=== PATIENT | female | born 1980 | race Caucasian/White ===

== ENCOUNTER 2019-03-28 11:54 | Emergency (ER) | payer OTHER, MEDICAID ==
[~2019-03-28] VITALS: Ht 165.1 cm; Wt 81.8 kg
[~2019-03-28 11:54] MED LIST: CETI10CA PO; RANI-467 PO
[2019-03-28] MEDS ORDERED: MORPHINE SULFATE 4 MG/ML, 1ML ONE (12:24)
[2019-03-28] MEDS ORDERED: ONDANSETRON 2MG/ML, 2ML ONE (12:24)
[2019-03-28] MEDS ORDERED: FAMOTIDINE 20 MG/2 ML ONE (12:24)
[2019-03-28] MEDS ORDERED: FAMOTIDINE 20 MG/2 ML IVPush ONE (12:30)
[2019-03-28] MEDS ORDERED: SODIUM CHLORIDE FLUSH 10ML SYR IVF ONE (12:30)
[2019-03-28] MEDS ORDERED: ONDANSETRON 2MG/ML, 2ML IVPush ONE (12:30)
[2019-03-28] MEDS ORDERED: MORPHINE SULFATE 4 MG/ML, 1ML IVPush PRN (12:30)
[2019-03-28] MEDS ORDERED: SODIUM CHLORIDE 0.9% 1,000ML IVBOLUS ONE (12:30)
[2019-03-28 12:42] LABS: ALANINE AMINOTRANSFERASE 30 U/L (12-78); ALBUMIN 3.8 g/dL (3.4-5.0); ANION GAP 10 mmol/L (5-15); CALCIUM 8.2 mg/dL (8.5-10.1); CHLORIDE 107 mmol/L (98-107); CREATININE 0.74 mg/dL (0.55-1.02)
[2019-03-28 12:43] LABS: BASOPHILS # (AUTO) 0.04 x10^3/uL (0-0.1); BASOPHILS % (AUTO) 1 % (0-1); EOSINOPHILS # (AUTO) 0.13 x10^3/uL (0-0.4); EOSINOPHILS % (AUTO) 2 % (1-7); LYMPHOCYTES # (AUTO) 1.87 x10^3/uL (1-3.4); LYMPHOCYTES % (AUTO) 28 % (22-44); MD NO; MEAN CORPUSCULAR HEMOGLOBIN 31.2 pg (27.0-34.8); MEAN CORPUSCULAR HGB CONC 33.1 g/dL (32.4-35.8); MEAN PLATELET VOLUME 7.6 fL (7.4-10.4); MONOCYTES # (AUTO) 0.37 x10^3/uL (0.2-0.8); MONOCYTES % (AUTO) 6 % (2-9); NEUTROPHILS # (AUTO) 4.28 x10^3/uL (1.8-6.8); NEUTROPHILS % (AUTO) 64 % (42-75); PLATELET COUNT 313 x10^3/uL (130-400); RED BLOOD COUNT 4.95 x10^6/uL (3.82-5.3); RED CELL DISTRIBUTION WIDTH 13.8 % (9.6-15.2)
[2019-03-28 12:45] LABS: ALKALINE PHOSPHATASE 53 U/L (45-117); BILIRUBIN,TOTAL 0.4 mg/dL (0.2-1.0); TOTAL PROTEIN 7.2 g/dL (6.4-8.2)
[2019-03-28 13:18] LABS: CULTURE INDICATED? YES; MICROSCOPIC AUTO
[2019-03-28] MEDS ORDERED: MAALOX/HYOSCYAMINE/LIDOCAINE 45 ML BTL ONE (13:42)
[2019-03-28] MEDS ORDERED: MECLIZINE CHEWABLE 25 MG TAB ONE (13:42)
--- NOTE | 2019-03-28 13:48 | NUR ---
BREAK RN: PATIENT MEDICATED PER EMAR. VS UPDATED. PATIENT RESTING ON THE GURNEY WATCHING TV WITH FAMILY AT BEDSIDE. SIDE RAILS UP X2, CALL LIGHT IN REACH. DENIES FURTHER NEEDS AT THIS TIME.
[2019-03-28] MEDS ORDERED: MECLIZINE CHEWABLE 25 MG TAB PO ONE (14:00)
[2019-03-28] MEDS ORDERED: MAALOX/HYOSCYAMINE/LIDOCAINE 45 ML BTL PO ONE (14:00)
--- NOTE | 2019-03-28 14:39 | NUR ---
DISCHARGE INSTRUCTIONS REVIEWED
[2019-03-28 14:40] VITALS: BP 119/73
--- NOTE | 2019-03-28 14:41 | NUR ---
Patient given discharge instructions and they have confirmed that they understand the instructions. Patient ambulatory with steady gait.
== END 2019-03-28 14:49 | disposition home or self-care (01) ==
LOC: ED 13:11
DX: K29.20 Alcoholic gastritis without bleeding (principal); F10.221 Alcohol dependence with intoxication delirium; R42 Dizziness and giddiness; R51 Headache; Y90.0 Blood alcohol level of less than 20 mg/100 ml
CPT/HCPCS: 36415; 76700; 80053; 80307; 81001; 83690; 85025; 87077; 87086; 93005; 96361; 96374; 96375; 99284; J2270; J2405; J3490; J7030; 87186

== ENCOUNTER 2019-04-01 20:42 | Emergency (ER) | payer MEDICAID ==
[~2019-04-01] VITALS: Ht 167.6 cm; Wt 82.5 kg
--- NOTE | 2019-04-01 21:23 | NUR ---
1ST CONTACT C PT. RESTING ON CART TALKING C GRANDMOTHER WHOM SHE CALLED THIS EVENING AND STATED "I NEED HELP" PT STATES SHE IS NO LONGER ABLE TO CONTROL HER DRINKING. STATES SHE WENT TO [facility] IN OCTOBER & DID VERY WELL FOR COUPLE MONTHS AFTERWARDS, THEN STARTED DRINKING "WELL OVER A 1/5 OF VODKA A DAY.. THATS JUST A SNACK" PT AMBULATORY C MILDLY UNSTEADY GAIT TO RESTROOM, URINE COLLECED & SENT. PHELB AT BS. PT STATES SHE LOST HER JOB THIS WEEK & LAST YEAR HER WALKED OUT ON HER "BHARGAVI HE WANTED TO TRY SOMETHING DIFFERENT... AND NOW HES A TRANNY" PT HAS SUPERFICIAL SMALL TO B/L INNER F/A. STATES LAST WEEK SHE WAS FEELING S/I, BUT NOT CURRENLY HAVING ANY THOUGHTS OF HURTING HER SELF, STATES SHE JUST WANTS TO DETOX.
[2019-04-01] MEDS ORDERED: LORazepam 1MG TABLET PO ONE (21:30)
[2019-04-01 21:33] LABS: BASOPHILS # (AUTO) 0.06 x10^3/uL (0-0.1); BASOPHILS % (AUTO) 1 % (0-1); EOSINOPHILS # (AUTO) 0.22 x10^3/uL (0-0.4); EOSINOPHILS % (AUTO) 3 % (1-7); LYMPHOCYTES # (AUTO) 2.45 x10^3/uL (1-3.4); LYMPHOCYTES % (AUTO) 27 % (22-44); MD NO; MEAN CORPUSCULAR HEMOGLOBIN 31.3 pg (27.0-34.8); MEAN CORPUSCULAR HGB CONC 33.4 g/dL (32.4-35.8); MEAN CORPUSCULAR VOLUME 93.7 fL (80-100); MEAN PLATELET VOLUME 7.2 fL (7.4-10.4); MONOCYTES # (AUTO) 0.38 x10^3/uL (0.2-0.8); MONOCYTES % (AUTO) 4 % (2-9); NEUTROPHILS # (AUTO) 5.81 x10^3/uL (1.8-6.8); NEUTROPHILS % (AUTO) 65 % (42-75); PLATELET COUNT 275 x10^3/uL (130-400); RED BLOOD COUNT 4.84 x10^6/uL (3.82-5.3); RED CELL DISTRIBUTION WIDTH 13.8 % (9.6-15.2)
[2019-04-01 21:42] LABS: ALANINE AMINOTRANSFERASE 35 U/L (12-78); ANION GAP 10 mmol/L (5-15); CALCIUM 8.8 mg/dL (8.5-10.1); CHLORIDE 112 mmol/L (98-107); CREATININE 0.71 mg/dL (0.55-1.02)
[2019-04-01 21:45] LABS: AMPHETAMINE SCREEN, URINE Negative (Negative); BARBITURATE SCREEN, URINE Negative (Negative); BENZODIAZEPINE SCREEN, URINE Negative (Negative); CANNABINOID SCREEN, URINE Negative (Negative); COCAINE SCREEN, URINE Negative (Negative); METHADONE SCREEN, URINE Negative (Negative); OPIATE SCREEN, URINE Negative (Negative)
[2019-04-01 21:48] LABS: ALKALINE PHOSPHATASE 54 U/L (45-117); BILIRUBIN,TOTAL 0.3 mg/dL (0.2-1.0); TOTAL PROTEIN 7.4 g/dL (6.4-8.2)
[2019-04-01] MEDS ORDERED: DIAZEPAM 10 MG TABLET PO ONE (22:00)
[2019-04-01] MEDS ORDERED: SODIUM CHLORIDE FLUSH 10ML SYR IVF ONE (22:00)
[2019-04-01] MEDS ORDERED: MAGNESIUM SULFATE 1 GM, THIAMINE 100 MG, FOLIC ACID 1 MG, MVI ADULT 10 ML in SODIUM CHL... IV ONE (22:30)
--- NOTE | 2019-04-01 22:35 | NUR ---
SITTER AT BS C GRANDMOTHER. SLEEPING ON CART, RR EVEN NON LABORED. WILL CTM.
--- NOTE | 2019-04-01 23:57 | NUR ---
PT SLEEPING ON CART. RR EVEN NON LABORED. SITTER AT BS. WILL CTM. IV INFUSING WELL.
--- NOTE | 2019-04-02 01:50 | NUR ---
AMBUALTORY TO RESTROOM C STEADY GAIT C SITTER. GIVEN JUICE & CRACKERS. VSS. WILL CTM.
--- NOTE | 2019-04-02 03:35 | NUR ---
PT SLEEPING ON CART. RR EVEN NON LABORED. NAD. SITTER REMAINS IN ROOM. WILL CTM.
--- NOTE | 2019-04-02 03:53 | NUR ---
PT AMBULATORY TO RESTROOM & RM 38 C STEADY GAIT. 1 BAG OF BELONGINGS PLACED IN LOCKER. REPORT TO MERCEDES MOODY.
--- NOTE | 2019-04-02 03:55 | NUR ---
Received report from previous RN. RN x2 to bedside to inform patient of move. Patient agreeable, ambulated down to bathroom, then back into room. Patient provided crackers and juice. Intravenous fluids still running. Patient resting comfortably. Awaiting reassessment in AM.
--- NOTE | 2019-04-02 05:21 | NUR ---
Emergency department deburr technician to bedside to update patient's blood alcohol content with breathalyzer. Patient able to complete test after one attempt. Provider notified, no orders received.
--- NOTE | 2019-04-02 06:55 | NUR ---
REPORT RECIEVED FROM MERCEDES MOODY. PATIENT SLEEPING IN BED, SAFETY PRECAUTIONS IN PLACE.
[2019-04-02 07:30] VITALS: BP 110/60
[2019-04-02] MEDS ORDERED: LORazepam 1MG TABLET ONE (07:41)
--- NOTE | 2019-04-02 08:29 | NUR ---
MEAL PROVIDED, SAFETY PRECAUTIONS IN PLACE
--- NOTE | 2019-04-02 09:00 | NUR ---
REPORT FROM ADEN
--- NOTE | 2019-04-02 10:00 | NUR ---
PT RESTING. CALLI MADRIGALN AT BEDSIDE.
--- NOTE | 2019-04-02 11:23 | NUR ---
Patient/Caregiver given discharge instructions and they have confirmed that they understand the instructions. Patient ambulatory with steady gait.
[2019-04-02] MEDS ORDERED: LAMOTRIGINE 100 MG TABLET PO ONE (11:30)
--- NOTE | 2019-04-02 12:01 | NUR ---
Patient/Caregiver given discharge instructions and they have confirmed that they understand the instructions. Patient ambulatory with steady gait.
--- NOTE | 2019-04-02 12:12 | NUR ---
MEDICATED PRIOR DC
== END 2019-04-02 12:13 | disposition home or self-care (01) ==
LOC: ED 21:35
DX: F10.220 Alcohol dependence with intoxication, uncomplicated (principal); Y90.0 Blood alcohol level of less than 20 mg/100 ml; J45.909 Unspecified asthma, uncomplicated
CPT/HCPCS: 36415; 80053; 80307; 84703; 85025; 96365; 99284; J3411; J3475; J7030

== ENCOUNTER 2019-04-27 23:32 | Emergency (ER) | payer SELFPAY ==
[~2019-04-27] VITALS: Ht 165.1 cm; Wt 92.0 kg
[2019-04-28] MEDS ORDERED: ONDANSETRON 2MG/ML, 2ML ONE ×2 (00:04→02:20)
[2019-04-28] MEDS ORDERED: MORPHINE SULFATE 4 MG/ML, 1ML ONE ×3 (00:04→02:21)
--- NOTE | 2019-04-28 00:10 | NUR ---
Pt c/o low abd pain with abd spasms starting 1 hour ago. Pt appears very uncomfortable, restless in bed but cooperative with staff. Pt medicated per MAR, positioned for comfort in bed. Continuous oxygen and BP monitors applied, all safety measures observed. Pt encouraged to provide urine sample as soon as she is able. Pt denies other needs.
[2019-04-28] MEDS: MORPHINE SULFATE 4 MG/ML, 1ML IVPush PRN ×2 (00:12→00:32)
[2019-04-28 00:16] LABS: BASOPHILS # (AUTO) 0.08 x10^3/uL (0-0.1); BASOPHILS % (AUTO) 1 % (0-1); EOSINOPHILS # (AUTO) 0.29 x10^3/uL (0-0.4); EOSINOPHILS % (AUTO) 2 % (1-7); LYMPHOCYTES # (AUTO) 3.23 x10^3/uL (1-3.4); LYMPHOCYTES % (AUTO) 26 % (22-44); MD NO; MEAN CORPUSCULAR HEMOGLOBIN 30.9 pg (27.0-34.8); MEAN CORPUSCULAR HGB CONC 33.8 g/dL (32.4-35.8); MEAN CORPUSCULAR VOLUME 91.6 fL (80-100); MEAN PLATELET VOLUME 7.6 fL (7.4-10.4); MONOCYTES # (AUTO) 0.47 x10^3/uL (0.2-0.8); MONOCYTES % (AUTO) 4 % (2-9); NEUTROPHILS # (AUTO) 8.45 x10^3/uL (1.8-6.8); NEUTROPHILS % (AUTO) 68 % (42-75); PLATELET COUNT 283 x10^3/uL (130-400); RED CELL DISTRIBUTION WIDTH 13.4 % (9.6-15.2)
--- NOTE | 2019-04-28 00:25 | NUR ---
Pt ambulatory to bathroom and back to bed without difficulty. Pt states pain still 7/10 after medications. Pt requesting additional pain medication.
[2019-04-28 00:26] LABS: ALBUMIN 3.6 g/dL (3.4-5.0); ANION GAP 7 mmol/L (5-15); CALCIUM 8.2 mg/dL (8.5-10.1); CHLORIDE 111 mmol/L (98-107); CREATININE 0.73 mg/dL (0.55-1.02)
--- NOTE | 2019-04-28 00:32 | NUR ---
Pt medicated for continued pain per MAR, denies other needs.
[2019-04-28 00:35] LABS: MICROSCOPIC AUTO
[2019-04-28 00:39] LABS: CULTURE INDICATED? YES
--- NOTE | 2019-04-28 01:09 | NUR ---
BREAK RN: PT. TO CT VIA [place] AT THIS TIME. NO DISTRESS NOTED.
[2019-04-28] MEDS ORDERED: OMNIPAQUE 350 MG/ML, 100ML BOTTLE ONE (01:17)
--- NOTE | 2019-04-28 01:17 | NUR ---
Pt back from CT, resting in bed, MOHAMUDN.
[2019-04-28 01:33] VITALS: BP 107/68
--- NOTE | 2019-04-28 01:34 | NUR ---
Pt resting in bed with eyes closed, resp even and unlabored, NADN.
[2019-04-28] MEDS ORDERED: SULFAMETH./TRIMETHOPRIM DS 800MG/160MG TABLET ONE (02:20)
[2019-04-28] MEDS ORDERED: SULFAMETH./TRIMETHOPRIM DS 800MG/160MG TABLET PO ONE (02:30)
[2019-04-28] MEDS ORDERED: ONDANSETRON 2MG/ML, 2ML IVPush ONE ×2 (02:30)
[2019-04-28] MEDS ORDERED: MORPHINE SULFATE 4 MG/ML, 1ML IVPush PRN (02:30)
== END 2019-04-28 02:46 | disposition home or self-care (01) ==
LOC: ED 23:52
DX: N30.00 Acute cystitis without hematuria (principal); J45.909 Unspecified asthma, uncomplicated; G40.909 Epilepsy, unspecified, not intractable, without status epilepticus; R10.31 Right lower quadrant pain; F17.200 Nicotine dependence, unspecified, uncomplicated; Z90.49 Acquired absence of other specified parts of digestive tract
CPT/HCPCS: 36415; 74177; 80048; 81001; 82040; 85025; 87086; 96374; 96375; 96376; 99284; J2270; J2405; Q9967

== ENCOUNTER 2019-05-05 06:04 | Emergency (ER) | payer MEDICAID, OTHER ==
[~2019-05-05] VITALS: Ht 165.1 cm; Wt 89.9 kg
--- NOTE | 2019-05-05 06:23 | NUR ---
PT REPORTS RLQ PAIN, WITH NAUSEA AND VOMITING STARTING LAST NIGHT. DENIES RADIATIN OF PAIN, REPORTS SHE DOES HAVE HER APPENDIX STILL. REPORTS SHE HAS CURRENT UTI AND IS TAKING BACTRIM. PT DENIES ANY OTHER C/O AT THIS TIME. PT CONNECTED TO MONITORING, CALL LIGHT WITHIN REACH, ALL SAFETY MEASURES IN PLACE.
[2019-05-05] MEDS ORDERED: ONDANSETRON 2MG/ML, 2ML ONE ×2 (06:27→08:06)
[2019-05-05] MEDS ORDERED: MORPHINE SULFATE 4 MG/ML, 1ML ONE ×2 (06:28→08:02)
[2019-05-05] MEDS ORDERED: FAMOTIDINE 20 MG/2 ML ONE (06:29)
[2019-05-05] MEDS ORDERED: SODIUM CHLORIDE 0.9% 1,000ML IVBOLUS ONE (06:30)
[2019-05-05] MEDS ORDERED: ONDANSETRON 2MG/ML, 2ML IVPush ONE ×2 (06:30→08:30)
[2019-05-05] MEDS ORDERED: FAMOTIDINE 20 MG/2 ML IV ONE (06:30)
[2019-05-05] MEDS: MORPHINE SULFATE 4 MG/ML, 1ML IVPush PRN ×2 (06:38→08:12)
[2019-05-05 06:40] LABS: BASOPHILS # (AUTO) 0.05 x10^3/uL (0-0.1); BASOPHILS % (AUTO) 1 % (0-1); EOSINOPHILS # (AUTO) 0.28 x10^3/uL (0-0.4); EOSINOPHILS % (AUTO) 3 % (1-7); LYMPHOCYTES # (AUTO) 2.33 x10^3/uL (1-3.4); LYMPHOCYTES % (AUTO) 23 % (22-44); MD NO; MEAN CORPUSCULAR HEMOGLOBIN 31.1 pg (27.0-34.8); MEAN CORPUSCULAR VOLUME 91.4 fL (80-100); MEAN PLATELET VOLUME 7.1 fL (7.4-10.4); MONOCYTES # (AUTO) 0.42 x10^3/uL (0.2-0.8); MONOCYTES % (AUTO) 4 % (2-9); NEUTROPHILS # (AUTO) 6.99 x10^3/uL (1.8-6.8); NEUTROPHILS % (AUTO) 69 % (42-75); PLATELET COUNT 283 x10^3/uL (130-400); RED BLOOD COUNT 4.63 x10^6/uL (3.82-5.3); RED CELL DISTRIBUTION WIDTH 13.3 % (9.6-15.2)
--- NOTE | 2019-05-05 06:43 | NUR ---
LABS DRAWN, UA SENT, PT MEDICATED PER MAR WITH IVF RUNNING AT THIS TIME. PT DENIES FURTHER NEEDS AT THIS TIME. MONITORING IN PLACE, CALL LIGHT WITHIN REACH, ALL SAFETY MEASURES IN PLACE.
[2019-05-05 06:50] LABS: MICROSCOPIC AUTO
[2019-05-05 06:51] LABS: CULTURE INDICATED? YES
[2019-05-05 06:53] LABS: ALANINE AMINOTRANSFERASE 26 U/L (12-78); ALBUMIN 3.5 g/dL (3.4-5.0); ANION GAP 7 mmol/L (5-15); CHLORIDE 108 mmol/L (98-107); CREATININE 0.75 mg/dL (0.55-1.02)
--- NOTE | 2019-05-05 06:53 | NUR ---
REPORT GIVEN TO FRANSISCO GAMA
[2019-05-05 06:55] LABS: ALKALINE PHOSPHATASE 63 U/L (45-117); BILIRUBIN,TOTAL 0.3 mg/dL (0.2-1.0); TOTAL PROTEIN 7.1 g/dL (6.4-8.2)
--- NOTE | 2019-05-05 07:17 | NUR ---
LATE NOTE ENTRY DUE TO PT CARE. Received bedside report from FRANSISCO Slater. All questions answered. Pt transported on gurney to US. NADN. No needs expressed at this time. Assuming care of pt at this time.
[2019-05-05] MEDS ORDERED: CEFTRIAXONE PMX 1GM/50ML 50 ML ONE (08:01)
[2019-05-05] MEDS: CEFTRIAXONE PMX 1GM/50ML 50 ML IV ONE ×2 (08:12→08:32)
--- NOTE | 2019-05-05 08:14 | NUR ---
Provided medication for nausea and pain. CT at bedside. Pt transfered on gurney from ED to CT. Will hang antibiotics per EMAR when pt returns from CT.
[2019-05-05 08:15] VITALS: BP 133/86
[2019-05-05] MEDS ORDERED: MORPHINE SULFATE 4 MG/ML, 1ML IVPush PRN (08:30)
[2019-05-05] MEDS ORDERED: PROMETHAZINE 25 MG/ML, 1ML ONE (09:19)
[2019-05-05] MEDS ORDERED: OMNIPAQUE 350 MG/ML, 100ML BOTTLE ONE (09:24)
--- NOTE | 2019-05-05 09:27 | NUR ---
Medication provided per EDMD verbal order. Provided sprite and crackers per pt request, EDPA aware and stated, "ya go ahead and feed her a little".
[2019-05-05] MEDS ORDERED: PROMETHAZINE 25 MG/ML, 1ML IM ONE (09:30)
--- NOTE | 2019-05-05 10:07 | NUR ---
Patient given discharge instructions and they have confirmed that they understand the instructions. Patient ambulatory with steady gait. Pt has family to come pick her up and taker her home. Pt left with d/c paperwork, Rx, and all personal belongings.
== END 2019-05-05 10:08 | disposition home or self-care (01) ==
LOC: ED 08:53
DX: N30.00 Acute cystitis without hematuria (principal); R63.0 Anorexia; R11.2 Nausea with vomiting, unspecified; R19.7 Diarrhea, unspecified; G40.909 Epilepsy, unspecified, not intractable, without status epilepticus; J45.909 Unspecified asthma, uncomplicated; Z90.710 Acquired absence of both cervix and uterus; Z87.19 Personal history of other diseases of the digestive system; Z90.49 Acquired absence of other specified parts of digestive tract
CPT/HCPCS: 36415; 74177; 76830; 80053; 81001; 83690; 85025; 87086; 96361; 96365; 96372; 96375; 96376; 99284; J0696; J2270; J2405; J2550; J3490; J7030; Q9967

== ENCOUNTER 2019-09-15 10:59 | Emergency (ER) | payer MEDICAID ==
[~2019-09-15] VITALS: Ht 167.6 cm; Wt 98.2 kg
[2019-09-15 11:37] LABS: BASOPHILS # (AUTO) 0.04 x10^3/uL (0-0.1); BASOPHILS % (AUTO) 1 % (0-1); EOSINOPHILS # (AUTO) 0.25 x10^3/uL (0-0.4); EOSINOPHILS % (AUTO) 3 % (1-7); LYMPHOCYTES # (AUTO) 1.85 x10^3/uL (1-3.4); LYMPHOCYTES % (AUTO) 24 % (22-44); MD NO; MEAN CORPUSCULAR HEMOGLOBIN 30.4 pg (27.0-34.8); MEAN CORPUSCULAR HGB CONC 34.1 g/dL (32.4-35.8); MEAN CORPUSCULAR VOLUME 89.1 fL (80-100); MEAN PLATELET VOLUME 7.2 fL (7.4-10.4); MONOCYTES # (AUTO) 0.28 x10^3/uL (0.2-0.8); MONOCYTES % (AUTO) 4 % (2-9); NEUTROPHILS # (AUTO) 5.39 x10^3/uL (1.8-6.8); NEUTROPHILS % (AUTO) 69 % (42-75); PLATELET COUNT 248 x10^3/uL (130-400); RED BLOOD COUNT 4.48 x10^6/uL (3.82-5.3); RED CELL DISTRIBUTION WIDTH 12.5 % (9.6-15.2)
[2019-09-15 11:50] LABS: CHLORIDE 105 mmol/L (98-107)
--- NOTE | 2019-09-15 11:52 | NUR ---
Pt arrives to ed with right abd side pain. Pt reports that she has been uncomfortable for about 3 days. Pt reports that she also has increased frequent uti and bladder infections. Pt denies any trauma. Pt is a/ox4 and no resp symptoms. Pt providing UA at this time.
[2019-09-15 12:01] LABS: ALANINE AMINOTRANSFERASE 18 U/L (12-78); ALBUMIN 3.5 g/dL (3.4-5.0); ALKALINE PHOSPHATASE 49 U/L (45-117); ANION GAP 6 mmol/L (5-15); BILIRUBIN,TOTAL 0.3 mg/dL (0.2-1.0); CALCIUM 8.4 mg/dL (8.5-10.1); CREATININE 0.89 mg/dL (0.55-1.02)
[2019-09-15] MEDS ORDERED: LAMO25TA52 PO (12:09)
[2019-09-15] MEDS ORDERED: PROMETHAZINE 25 MG/ML, 1ML IM ONE (12:30)
[2019-09-15] MEDS ORDERED: HYDROmorphone 2 MG/ML, 1ML IM PRN (12:30)
[2019-09-15 12:33] LABS: MICROSCOPIC INDICATED
[2019-09-15] MEDS ORDERED: HYDROmorphone 1 MG/ML, 1ML INJ ONE (12:37)
[2019-09-15] MEDS ORDERED: PROMETHAZINE 25 MG/ML, 1ML ONE (12:37)
[2019-09-15 12:42] LABS: TOTAL PROTEIN 6.5 g/dL (6.4-8.2)
--- NOTE | 2019-09-15 12:44 | NUR ---
PT MEDICATED PER EMAR. PT TOLERATED WELL. PT'S AOX4. RESPS EVEN AND UNALBORED.
--- NOTE | 2019-09-15 13:10 | NUR ---
PT TO CT AT THIS TIME.
[2019-09-15 13:46] VITALS: BP 125/80
--- NOTE | 2019-09-15 13:46 | NUR ---
pt resting in [facility]. pt's aox4. pt states"i feel much better. pain level is 2/10" resps even and unlabored.
--- NOTE | 2019-09-15 14:35 | NUR ---
Patient given discharge instructions and they have confirmed that they understand the instructions. Patient ambulatory with steady gait.
== END 2019-09-15 14:36 | disposition home or self-care (01) ==
LOC: ED 12:24
DX: R10.31 Right lower quadrant pain (principal); R10.11 Right upper quadrant pain; R11.2 Nausea with vomiting, unspecified; Z90.49 Acquired absence of other specified parts of digestive tract; Z90.710 Acquired absence of both cervix and uterus
CPT/HCPCS: 36415; 74176; 80053; 81001; 83690; 85025; 87077; 87086; 96372; 99284; J1170; J2550; 87186

== ENCOUNTER 2019-12-07 11:27 | Emergency (ER) | payer MEDICAID, OTHER ==
[~2019-12-07] VITALS: Ht 167.6 cm; Wt 93.8 kg
[~2019-12-07 11:27] MED LIST changes: +LAMO25TA52 PO
--- NOTE | 2019-12-07 11:30 | NUR ---
PT AMBULATORY TO ED ROOM 29 W/ STEADY GAIT.
--- NOTE | 2019-12-07 11:37 | NUR ---
C/O WORST VENTURA SHE'S EVER HAD. STATES "I GOT A CONCUSSION AT WORK 2 DAYS AGO"; DX'D AT [facility] . STATES SHE DROPPED A PIECE OF MATERIAL AND HIT TOP PART OF HER HEAD ON AN OVERHANG WHILE RETURNING TO STANDING POSITION. DENIES LOC, VOMITING. + NAUSEA, HX OF MIGRAINE, INTERMITTENT BLURRED VISION. IBUPROFEN & TYLENOL AT 0500 TODAY.
[2019-12-07] MEDS ORDERED: ARIP10TA33 PO (11:51)
[2019-12-07] MEDS ORDERED: ONDA4TAB13 PO (11:51)
[2019-12-07] MEDS ORDERED: TRAZ-96 PO (11:51)
[2019-12-07] MEDS ORDERED: LAMO200T6 PO (11:51)
[2019-12-07] MEDS ORDERED: NALT50TA PO (11:51)
[2019-12-07] MEDS ORDERED: CYCL-259 PO (11:51)
[2019-12-07] MEDS ORDERED: HYDR50CA PO (11:51)
[2019-12-07] MEDS ORDERED: SODIUM CHLORIDE 0.9% 1,000ML IVBOLUS ONE (12:00)
[2019-12-07] MEDS ORDERED: SODIUM CHLORIDE FLUSH 10ML SYR IVF ONE (12:00)
[2019-12-07] MEDS ORDERED: DIPHENHYDRAMINE 50 MG/ML, 1ML IVPush ONE (12:00)
[2019-12-07] MEDS ORDERED: KETOROLAC 30 MG/1 ML IV ONE (12:00)
[2019-12-07] MEDS ORDERED: PROCHLORPERAZINE 5 MG/ML, 2ML IVPush ONE (12:00)
--- NOTE | 2019-12-07 12:03 | NUR ---
TO CT PER BETINA
[2019-12-07] MEDS ORDERED: PROCHLORPERAZINE 5 MG/ML, 2ML ONE (12:13)
[2019-12-07] MEDS ORDERED: KETOROLAC 30 MG/1 ML ONE (12:14)
[2019-12-07] MEDS ORDERED: DIPHENHYDRAMINE 50 MG/ML, 1ML ONE (12:16)
[2019-12-07 13:07] VITALS: BP 113/81
--- NOTE | 2019-12-07 13:25 | NUR ---
PT REPORTS IMPROVEMENT IN PAIN.
== END 2019-12-07 13:39 | disposition home or self-care (01) ==
LOC: ED 12:00
DX: S16.1XXA Strain of muscle, fascia and tendon at neck level, initial encounter (principal); S09.90XA Unspecified injury of head, initial encounter; Z90.710 Acquired absence of both cervix and uterus; Z90.89 Acquired absence of other organs; Z88.0 Allergy status to penicillin; Z88.1 Allergy status to other antibiotic agents; X58.XXXA Exposure to other specified factors, initial encounter; Y93.89 Activity, other specified; Y92.89 Other specified places as the place of occurrence of the external cause; Y99.0 Civilian activity done for income or pay
CPT/HCPCS: 70450; 72125; 96361; 96374; 96375; 99285; J0780; J1200; J1885; J7030

== ENCOUNTER 2020-03-12 13:03 | Emergency (ER) | payer MEDICAID, OTHER ==
[~2020-03-12] VITALS: Ht 167.6 cm; Wt 92.8 kg
[~2020-03-12 13:03] MED LIST changes: +ARIP10TA33 PO; +CYCL-259 PO; +HYDR50CA PO; +LAMO200T6 PO; +NALT50TA PO; +ONDA4TAB13 PO; +TRAZ-96 PO
[2020-03-12 13:06] VITALS: BP 122/76
--- NOTE | 2020-03-12 13:34 | NUR ---
pt to room from lobby
--- NOTE | 2020-03-12 14:02 | NUR ---
ALL RESULTS ARE BACK AT THIS TIME. CHART UP FOR RECHECK.
== END 2020-03-12 15:21 | disposition home or self-care (01) ==
LOC: ED 14:16
DX: M72.2 Plantar fascial fibromatosis (principal); J45.909 Unspecified asthma, uncomplicated; Z90.49 Acquired absence of other specified parts of digestive tract; Z90.710 Acquired absence of both cervix and uterus; Z90.89 Acquired absence of other organs
CPT/HCPCS: 99283

== ENCOUNTER 2020-07-07 10:52 | Emergency (ER) | payer BC, MEDICAID ==
[~2020-07-07] VITALS: Ht 167.6 cm; Wt 85.5 kg
[~2020-07-07 10:52] MED LIST changes: -CYCL-259 PO; +CYCL10TA2 PO
--- NOTE | 2020-07-07 11:11 | NUR ---
PT C/O ABD PAIN THAT STARTED THIS AM AT 0400. PT HAS N/V, CHILLS, AND DIARRHEA WITH BLOOD. PAIN 11/29. PT DENIES SOB, CP, OR VENTURA.
[2020-07-07] MEDS ORDERED: MORPHINE SULFATE 4 MG/ML, 1ML ONE (11:24)
[2020-07-07] MEDS ORDERED: ONDANSETRON 2MG/ML, 2ML ONE (11:24)
[2020-07-07] MEDS ORDERED: MORPHINE SULFATE 4 MG/ML, 1ML IVPush PRN (11:30)
[2020-07-07] MEDS ORDERED: SODIUM CHLORIDE FLUSH 10ML SYR IVF ONE (11:30)
[2020-07-07] MEDS ORDERED: ONDANSETRON 2MG/ML, 2ML IVPush ONE (11:30)
[2020-07-07] MEDS ORDERED: SODIUM CHLORIDE 0.9% 1,000 ML IV ONE (11:30)
[2020-07-07] MEDS ORDERED: SODIUM CHLORIDE 0.9% 1,000ML IVBOLUS ONE (11:30)
[2020-07-07 11:32] LABS: MICROSCOPIC NOT IND
[2020-07-07 11:52] LABS: BASOPHILS % (AUTO) 1 % (0-1); EOSINOPHILS % (AUTO) 1 % (1-7); LYMPHOCYTES % (AUTO) 30 % (22-44); MEAN CORPUSCULAR HEMOGLOBIN 29.7 pg (27.0-34.8); MEAN CORPUSCULAR HGB CONC 33.6 g/dL (32.4-35.8); MEAN PLATELET VOLUME 7.6 fL (7.4-10.4); MONOCYTES % (AUTO) 4 % (2-9); NEUTROPHILS % (AUTO) 64 % (42-75); PLATELET COUNT 280 x10^3/uL (130-400); RED BLOOD COUNT 4.48 x10^6/uL (3.82-5.3); RED CELL DISTRIBUTION WIDTH 12.8 % (9.6-15.2)
[2020-07-07 11:53] LABS: MD NO
[2020-07-07 11:58] LABS: ALANINE AMINOTRANSFERASE 16 U/L (12-78); ALBUMIN 4.5 g/dL (3.4-5.0); ANION GAP 6 mmol/L (5-15); CALCIUM 9.1 mg/dL (8.5-10.1); CHLORIDE 108 mmol/L (98-107); CREATININE 0.84 mg/dL (0.55-1.02)
[2020-07-07 12:01] LABS: ALKALINE PHOSPHATASE 36 U/L (45-117); BILIRUBIN,TOTAL 0.3 mg/dL (0.2-1.0); TOTAL PROTEIN 7.2 g/dL (6.4-8.2)
[2020-07-07 12:51] VITALS: BP 94/58
--- NOTE | 2020-07-07 12:55 | NUR ---
PT REC'VD DISCHARGE INSTRUCTIONS AND EDUCATION. PT HAD NO QUESTIONS. PT AMBULATED TO DC AREA, STEADY GAIT.
== END 2020-07-07 12:57 | disposition home or self-care (01) ==
LOC: ED 11:21
DX: K52.9 Noninfective gastroenteritis and colitis, unspecified (principal); R11.10 Vomiting, unspecified; F17.200 Nicotine dependence, unspecified, uncomplicated; Z90.710 Acquired absence of both cervix and uterus
CPT/HCPCS: 36415; 80053; 81003; 83690; 85025; 96361; 96374; 96375; 99284; J2270; J2405; J7030

== ENCOUNTER 2020-07-26 18:00 | Emergency (ER) | payer MEDICAID ==
[~2020-07-26] VITALS: Ht 165.1 cm; Wt 89.0 kg
--- NOTE | 2020-07-26 18:31 | NUR ---
PT C/O RUQ PAIN THAT RADIATES TO FLANK AND BACK SINCE 1000 THIS MORNING. DESCRIBES PAIN CRAMPING AND ACHING. PT HAD GALLBLADDER TAKEN OUT 9 YEARS AGO. VOMITING THIS MORNING THAT WAS GREEN AND YELLOW. DENIES DIARRHEA. PAIN GETS WORSE WHEN BREATHING AND WALKING.
--- NOTE | 2020-07-26 18:44 | NUR ---
PT UP TO THE BATHROOM FOR UA.
[2020-07-26] MEDS ORDERED: MORPHINE SULFATE 4 MG/ML, 1ML ONE (18:57)
[2020-07-26] MEDS ORDERED: SODIUM CHLORIDE 0.9% 1,000 ML IV ONE (19:00)
[2020-07-26] MEDS ORDERED: ONDANSETRON 2MG/ML, 2ML IVPush ONE (19:00)
[2020-07-26] MEDS ORDERED: morphine SULFATE 10 MG/ML, 1ML IVPush ONE (19:00)
[2020-07-26] MEDS ORDERED: SODIUM CHLORIDE FLUSH 10ML SYR IVF ONE (19:00)
[2020-07-26 19:12] LABS: ALBUMIN 4.1 g/dL (3.4-5.0); ANION GAP 5 mmol/L (5-15); CALCIUM 8.3 mg/dL (8.5-10.1); CHLORIDE 107 mmol/L (98-107)
[2020-07-26 19:13] LABS: BASOPHILS % (AUTO) 1 % (0-1); EOSINOPHILS % (AUTO) 0 % (1-7); LYMPHOCYTES % (AUTO) 26 % (22-44); MEAN CORPUSCULAR HEMOGLOBIN 29.2 pg (27.0-34.8); MEAN PLATELET VOLUME 7.7 fL (7.4-10.4); MONOCYTES % (AUTO) 4 % (2-9); NEUTROPHILS % (AUTO) 69 % (42-75); PLATELET COUNT 276 x10^3/uL (130-400); RED CELL DISTRIBUTION WIDTH 12.7 % (9.6-15.2)
[2020-07-26 19:14] LABS: MD NO
[2020-07-26 19:15] LABS: ALANINE AMINOTRANSFERASE 20 U/L (12-78); ALKALINE PHOSPHATASE 35 U/L (45-117); BILIRUBIN,TOTAL 0.4 mg/dL (0.2-1.0); CREATININE 0.85 mg/dL (0.55-1.02); TOTAL PROTEIN 6.8 g/dL (6.4-8.2)
[2020-07-26] MEDS ORDERED: ONDANSETRON 2MG/ML, 2ML ONE (19:20)
[2020-07-26 20:00] LABS: MICROSCOPIC AUTO
[2020-07-26] MEDS ORDERED: HYDROmorphone 1 MG/ML, 1ML INJ IV ONE (20:00)
[2020-07-26] MEDS ORDERED: MORPHINE SULFATE 4 MG/ML, 1ML IVPush ONE (20:00)
[2020-07-26] MEDS ORDERED: HYDROmorphone 1 MG/ML, 1ML INJ ONE (20:12)
[2020-07-26] MEDS ORDERED: CEFTRIAXONE PMX 2GM/50ML 50 ML ONE (20:13)
--- NOTE | 2020-07-26 20:19 | NUR ---
SCANNER IS NOT WORKING IN PTS ROOM. HAVE USED 6 RIGHTS AND 3 CHECKS FOR ALL MEDICATIONS.
[2020-07-26] MEDS ORDERED: CEFTRIAXONE PMX 2GM/50ML 50 ML IVPB ONE (20:30)
--- NOTE | 2020-07-26 21:17 | NUR ---
PT OFF UNIT AT IMAGING.
[2020-07-26] MEDS ORDERED: OMNIPAQUE 350 MG/ML, 100ML BOTTLE ONE (21:22)
[2020-07-26 22:06] VITALS: BP 99/64
== END 2020-07-26 22:09 | disposition home or self-care (01) ==
LOC: ED 19:56
DX: N10 Acute pyelonephritis (principal); R10.11 Right upper quadrant pain; R11.2 Nausea with vomiting, unspecified; J45.909 Unspecified asthma, uncomplicated; G40.909 Epilepsy, unspecified, not intractable, without status epilepticus; Z88.8 Allergy status to other drugs, medicaments and biological substances; Z88.0 Allergy status to penicillin; Z90.89 Acquired absence of other organs; Z90.49 Acquired absence of other specified parts of digestive tract; Z90.710 Acquired absence of both cervix and uterus; Z79.899 Other long term (current) drug therapy
CPT/HCPCS: 36415; 74177; 76700; 80053; 81001; 83605; 83690; 85025; 87040; 87077; 87086; 87186; 96361; 96365; 96375; 99285; J0696; J1170; J2270; J2405; J7030; Q9967

== ENCOUNTER 2020-10-18 11:53 | Emergency (ER) | payer MEDICAID ==
[~2020-10-18] VITALS: Ht 167.6 cm; Wt 79.4 kg
--- NOTE | 2020-10-18 12:05 | NUR ---
BIB [facility] PT STATES AT 10AM STARTED LEFT FACIAL NUMBNESS WITH NO SPEECH PROBLEMS AND LEFT AND ARM TINGLINGING AND WEAKNESS, HISTORY TIA 3 YEARS AGO.
--- NOTE | 2020-10-18 12:05 | NUR ---
PT HOOKED UP TO HEART MONITOR O2 SAT AND BP, PT RESTING IN BED AFTER URINE COLLECTED BETINA RAILS UPX2 AND WILL CONTINUE TO MONITOR
--- NOTE | 2020-10-18 12:36 | NUR ---
provider at bedside to do evaluation.
[2020-10-18 12:58] LABS: BASOPHILS % (AUTO) 0 % (0-1); EOSINOPHILS % (AUTO) 1 % (1-7); LYMPHOCYTES % (AUTO) 25 % (22-44); MEAN CORPUSCULAR HEMOGLOBIN 29.1 pg (27.0-34.8); MEAN CORPUSCULAR HGB CONC 33.4 g/dL (32.4-35.8); MEAN PLATELET VOLUME 7.7 fL (7.4-10.4); MONOCYTES % (AUTO) 3 % (2-9); NEUTROPHILS % (AUTO) 71 % (42-75); PLATELET COUNT 264 x10^3/uL (130-400); RED BLOOD COUNT 4.66 x10^6/uL (3.82-5.3); RED CELL DISTRIBUTION WIDTH 13.7 % (9.6-15.2)
[2020-10-18] MEDS ORDERED: METOCLOPRAMIDE 5 MG/ML, 2ML ONE (12:59)
[2020-10-18] MEDS ORDERED: KETOROLAC 30 MG/1 ML ONE (12:59)
[2020-10-18] MEDS ORDERED: KETOROLAC 30 MG/1 ML IVPush ONE (13:00)
[2020-10-18] MEDS ORDERED: METOCLOPRAMIDE 5 MG/ML, 2ML IVPush ONE (13:00)
--- NOTE | 2020-10-18 13:08 | NUR ---
PT RESPONDING WELL TO MEDICATION HEART RATE INCREASED.
--- NOTE | 2020-10-18 13:09 | NUR ---
BREAK FRANSISCO VARELA GIVEN REPORT TO ASSUME CARE
[2020-10-18 13:10] LABS: CHLORIDE 107 mmol/L (98-107)
[2020-10-18 13:31] LABS: ANION GAP 6 mmol/L (5-15); CALCIUM 8.6 mg/dL (8.5-10.1)
--- NOTE | 2020-10-18 13:43 | NUR ---
PT TO RADIOLOGY FOR EXAM.
[2020-10-18 14:38] VITALS: BP 100/65
== END 2020-10-18 15:50 | disposition home or self-care (01) ==
LOC: ED 12:55
DX: R20.2 Paresthesia of skin (principal); G43.001 Migraine without aura, not intractable, with status migrainosus; J45.909 Unspecified asthma, uncomplicated; F17.200 Nicotine dependence, unspecified, uncomplicated; Z90.49 Acquired absence of other specified parts of digestive tract; Z90.89 Acquired absence of other organs; Z88.0 Allergy status to penicillin; Z88.8 Allergy status to other drugs, medicaments and biological substances; Z88.1 Allergy status to other antibiotic agents
CPT/HCPCS: 36415; 70450; 80048; 82040; 85025; 93005; 96374; 96375; 99285; J1885; J2765

== ENCOUNTER 2020-11-19 12:49 | Emergency (ER) | payer MEDICAID ==
[~2020-11-19] VITALS: Ht 167.6 cm; Wt 81.5 kg
[2020-11-19] MEDS ORDERED: TRAZ150T62 PO (13:57)
[2020-11-19] MEDS ORDERED: SODIUM CHLORIDE 0.9% 1,000 ML IV ONE (14:00)
[2020-11-19] MEDS ORDERED: SODIUM CHLORIDE 0.9% 1,000ML IVBOLUS ONE (14:00)
[2020-11-19] MEDS ORDERED: HYDROmorphone 1 MG/ML, 1ML INJ IV ONE ×2 (14:00→15:30)
[2020-11-19] MEDS ORDERED: ONDANSETRON 2MG/ML, 2ML IVPush ONE ×2 (14:00→15:30)
[2020-11-19] MEDS ORDERED: SODIUM CHLORIDE FLUSH 10ML SYR IVF ONE (14:00)
[2020-11-19] MEDS ORDERED: HYDROmorphone 1 MG/ML, 1ML INJ ONE ×2 (14:02→15:29)
[2020-11-19] MEDS ORDERED: ONDANSETRON 2MG/ML, 2ML ONE ×2 (14:02→15:29)
--- NOTE | 2020-11-19 14:11 | NUR ---
placed on 2lnc priort to transport to ct after receiving dilaudid iv. as
[2020-11-19 14:19] LABS: BASOPHILS % (AUTO) 1 % (0-1); EOSINOPHILS % (AUTO) 4 % (1-7); LYMPHOCYTES % (AUTO) 29 % (22-44); MEAN CORPUSCULAR HEMOGLOBIN 29.2 pg (27.0-34.8); MEAN CORPUSCULAR HGB CONC 33.6 g/dL (32.4-35.8); MEAN PLATELET VOLUME 7.6 fL (7.4-10.4); MONOCYTES % (AUTO) 4 % (2-9); NEUTROPHILS % (AUTO) 62 % (42-75); PLATELET COUNT 260 x10^3/uL (130-400); RED BLOOD COUNT 4.83 x10^6/uL (3.82-5.3); RED CELL DISTRIBUTION WIDTH 13.7 % (9.6-15.2)
[2020-11-19 14:25] LABS: MICROSCOPIC NOT IND
[2020-11-19 14:31] LABS: ALANINE AMINOTRANSFERASE 22 U/L (12-78); ALBUMIN 4.4 g/dL (3.4-5.0); ANION GAP 3 mmol/L (5-15); CALCIUM 8.9 mg/dL (8.5-10.1); CHLORIDE 107 mmol/L (98-107); CREATININE 0.88 mg/dL (0.55-1.02)
[2020-11-19 14:33] LABS: ALKALINE PHOSPHATASE 39 U/L (45-117); BILIRUBIN,TOTAL 0.3 mg/dL (0.2-1.0); TOTAL PROTEIN 7.3 g/dL (6.4-8.2)
--- NOTE | 2020-11-19 15:14 | NUR ---
pt reports nausea and pain coming back. will notify md. eileen cody pending. call [facility]cher. as
--- NOTE | 2020-11-19 16:05 | NUR ---
d dimer neg. recheck. as
--- NOTE | 2020-11-19 16:08 | NUR ---
plan us. as
[2020-11-19 17:15] VITALS: BP 109/67
--- NOTE | 2020-11-19 17:26 | NUR ---
pt at us. as
== END 2020-11-19 18:53 | disposition home or self-care (01) ==
LOC: ED 14:07
DX: R10.11 Right upper quadrant pain (principal); R10.31 Right lower quadrant pain; G43.909 Migraine, unspecified, not intractable, without status migrainosus; J45.909 Unspecified asthma, uncomplicated; G40.909 Epilepsy, unspecified, not intractable, without status epilepticus; F17.200 Nicotine dependence, unspecified, uncomplicated; Z90.49 Acquired absence of other specified parts of digestive tract
CPT/HCPCS: 36415; 74176; 76830; 80053; 81003; 83690; 85025; 85379; 96374; 96375; 96376; 99285; J1170; J2405; J7030